=== PATIENT | female | born 1990 | race Caucasian/White ===

== ENCOUNTER 2017-03-18 07:10 | Inpatient (IN) ==
[2017-03-18] MEDS ORDERED: ceFAZolin 2,000 MG in PREMIX 1 EACH IV ONE (07:22)
[2017-03-18] MEDS ORDERED: CITRIC ACID/SODIUM CITRATE 30 ML UDCUP PO ONE (07:22)
[2017-03-18] MEDS ORDERED: FAMOTIDINE 20 MG/2 ML VIAL IV ONE (07:22)
[2017-03-18] MEDS ORDERED: OXYTOCIN 10 UNIT/ML VIAL IM ONE (07:26)
[2017-03-18] MEDS ORDERED: OXYTOCIN/LR 30 UNIT/1,000 ML BAG IV ONE (07:26)
[2017-03-18] MEDS ORDERED: LACTATED RINGERS 1,000 ML IV SCH (07:30)
[2017-03-18] MEDS: LACTATED RINGERS 1,000 ML IV SCH ×2 (07:31→14:37)
[2017-03-18 07:41] LABS: Basophils % 0.5 % (0.0-0.8); Eosinophils # 0.1 10*3/uL (0.0-0.87); Eosinophils % 1.2 % (0.00-10.9); Hemoglobin 9.8 GM/DL (12.0-16.0); Immature Granulocytes % 0.6 %; Immature Granulocytes Absolute 0.05 #; Lymphocytes # 2.2 10*3/uL (1.4-4.0); Lymphocytes % 27.6 % (21.3-54.2); Mean Corpuscular HGB Conc 32.7 GM/DL (32-36); Mean Corpuscular Hemoglobin 28 PG (27-34); Mean Corpuscular Volume 84.3 FL (87-102); Mean Platelet Volume 10.8 FL (9.6-12.0); Monocytes # 0.5 10*3/uL (0.11-0.8); Monocytes % 5.9 % (1.7-12.7); Neutrophils # 5.2 10*3/uL (1.4-7.4); Neutrophils % 64.2 % (38.7-73.9); Platelet Count 210 T/CUMM (130-400); Red Blood Count 3.56 MC/CUMM (3.8-5.5); Red Cell Distribution Width 14.6 % (9.3-17.3); White Blood Count 8.1 T/CUMM (4-12)
[2017-03-18 07:50] LABS: INR 0.9; PT Patient Result 9.4 SECS; Partial Thromboplastin Time 22.4 SECS (0-40)
[2017-03-18] MEDS ORDERED: OXYTOCIN/LR 20 UNIT/1,000 ML BAG IV ONE ×2 (07:57→10:16)
[2017-03-18] MEDS ORDERED: LABETALOL 100 MG TABLET ONE ×2 (08:06→18:11)
[2017-03-18] MEDS ORDERED: LABETALOL 100 MG TABLET PO ONE (08:07)
[2017-03-18 08:19] LABS: Alanine Aminotransferase 13 U/L (13-56); Albumin 2.8 G/DL (3.4-5.0); Alkaline Phosphatase 97 U/L (45-117); Aspartate Amino Transferase 8 U/L (0-37); Bilirubin,Total < 0.39 MG/DL (0.2-1.0); Blood Urea Nitrogen 8 MG/DL (7-18); Calcium 9.3 MG/DL (8.5-10.1); Glucose 85 MG/DL (74-106); Osmolality,Calculated 269.8 MOS/KG (273-304); Sodium 137 MMOL/L (136-145); Total Protein 7.3 G/DL (6.4-8.3)
[2017-03-18] MEDS ORDERED: SODIUM CHLORIDE 0.9% 250 ML IV PRN (09:32)
[2017-03-18] MEDS ORDERED: fentaNYL 100 MCG/2 ML VIAL ONE (10:14)
[2017-03-18] MEDS ORDERED: MORPHINE 10 MG/10 ML VIAL ONE (10:14)
[2017-03-18] MEDS ORDERED: MAGNESIUM HYDROXIDE SUSP 30 ML UDCUP PO PRN (10:16)
[2017-03-18] MEDS ORDERED: ACETAMINOPHEN 325 MG TABLET PO PRN (10:16)
[2017-03-18] MEDS ORDERED: ONDANSETRON 4 MG/2 ML VIAL IV PRN (10:16)
[2017-03-18] MEDS ORDERED: SIMETHICONE CHEW 80 MG TABLET PO PRN (10:16)
[2017-03-18] MEDS ORDERED: RHO(D) IMMUNE GLOBULIN 300 MCG SYRINGE IM ONE (10:16)
[2017-03-18] MEDS ORDERED: IBUPROFEN 800 MG TABLET PO PRN (10:16)
[2017-03-18 10:23] LABS: Cord Arterial Blood HCO3 20.1 MMOL/L
[2017-03-18 10:26] LABS: Cord Venous Blood HCO3 20.9 MMOL/L; Cord Venous Blood PCO2 39.2 MMHG; Cord Venous Blood PO2 30.3
[2017-03-18 12:43] LABS: Apearance,Urine CLEAR (Clear); Bacteria,Urine Occasional /HPF (Few); Bilirubin,Urine Negative (Negative); Blood, Urine Negative (Negative); Glucose,Urine (UA) Negative (Negative); Ketones,Urine Negative (Negative); Mucus,Urine Occasional /LPF (Occasional); Nitrite,Urine Negative (Negative); Protein,Urine Negative; RBC,Urine 1 /HPF (0-4); Squamous Epithelial Cell,Urine Occasional /HPF (0-10); Urine Color Yellow (Yellow); Urine Specific Gravity 1.015 (1.001-1.035); Urine Urobilinogen < 2.0 EU/DL (0.2-1.0); WBC,Urine <1 /HPF (0-6)
[2017-03-18] MEDS ORDERED: ACETAMINOPHEN 500 MG TABLET PO PRN (13:17)
[2017-03-18 17:07] LABS: Basophils % 0.3 % (0.0-0.8); Eosinophils # 0.1 10*3/uL (0.0-0.87); Eosinophils % 0.5 % (0.00-10.9); Hematocrit 29.3 VOL% (35.7-47.0); Hemoglobin 9.8 GM/DL (12.0-16.0); Immature Granulocytes % 0.6 %; Immature Granulocytes Absolute 0.08 #; Lymphocytes # 2.6 10*3/uL (1.4-4.0); Lymphocytes % 19.1 % (21.3-54.2); Mean Corpuscular HGB Conc 33.4 GM/DL (32-36); Mean Corpuscular Hemoglobin 28 PG (27-34); Mean Corpuscular Volume 84.2 FL (87-102); Mean Platelet Volume 11.6 FL (9.6-12.0); Monocytes # 0.8 10*3/uL (0.11-0.8); Monocytes % 5.9 % (1.7-12.7); Neutrophils % 73.6 % (38.7-73.9); Platelet Count 184 T/CUMM (130-400); Red Blood Count 3.48 MC/CUMM (3.8-5.5); Red Cell Distribution Width 14.6 % (9.3-17.3); White Blood Count 13.5 T/CUMM (4-12)
[2017-03-18] MEDS: DOCUSATE SODIUM 100 MG CAPSULE PO SCH (21:57)
[2017-03-18] MEDS: IBUPROFEN 800 MG TABLET PO PRN (23:43)
[2017-03-19] MEDS: LACTATED RINGERS 1,000 ML IV SCH (01:01)
[2017-03-19] MEDS: ACETAMINOPHEN/CODEINE 300-30 MG TABLET PO PRN ×3 (01:53→21:11)
[2017-03-19 05:59] LABS: Basophils % 0.1 % (0.0-0.8); Eosinophils # 0.1 10*3/uL (0.0-0.87); Eosinophils % 1.5 % (0.00-10.9); Hematocrit 24.5 VOL% (35.7-47.0); Hemoglobin 8.2 GM/DL (12.0-16.0); Immature Granulocytes % 0.5 %; Immature Granulocytes Absolute 0.04 #; Lymphocytes # 1.8 10*3/uL (1.4-4.0); Lymphocytes % 20.6 % (21.3-54.2); Mean Corpuscular HGB Conc 33.5 GM/DL (32-36); Mean Corpuscular Hemoglobin 28 PG (27-34); Mean Corpuscular Volume 83.3 FL (87-102); Mean Platelet Volume 10.9 FL (9.6-12.0); Monocytes # 0.6 10*3/uL (0.11-0.8); Monocytes % 6.8 % (1.7-12.7); Neutrophils % 70.5 % (38.7-73.9); Platelet Count 142 T/CUMM (130-400); Red Blood Count 2.94 MC/CUMM (3.8-5.5); Red Cell Distribution Width 14.9 % (9.3-17.3); White Blood Count 8.6 T/CUMM (4-12)
[2017-03-19] MEDS: IBUPROFEN 800 MG TABLET PO PRN ×2 (07:17→21:11)
[2017-03-19] MEDS ORDERED: SODIUM CHLORIDE 0.9% 250 ML IV PRN (08:54)
[2017-03-19] MEDS: FERROUS SULFATE 325 MG TABLET PO SCH ×2 (09:30→17:33)
[2017-03-19] MEDS: DOCUSATE SODIUM 100 MG CAPSULE PO SCH ×2 (09:31→21:11)
[2017-03-19] MEDS: MULTIVITAMIN (PRENATAL) TABLET PO SCH (09:31)
[2017-03-20] MEDS: FERROUS SULFATE 325 MG TABLET PO SCH ×2 (01:31→08:04)
[2017-03-20] MEDS: ACETAMINOPHEN/CODEINE 300-30 MG TABLET PO PRN ×2 (01:41→08:03)
[2017-03-20] MEDS: IBUPROFEN 800 MG TABLET PO PRN (06:13)
[2017-03-20 07:17] VITALS: BP 148/89
[2017-03-20] MEDS: DOCUSATE SODIUM 100 MG CAPSULE PO SCH (08:04)
[2017-03-20] MEDS: MULTIVITAMIN (PRENATAL) TABLET PO SCH (08:04)
== END 2017-03-20 11:25 | disposition home or self-care (01) | DRG 540 ==
LOC: N.LD 07:10 → N.OB 13:42
PROVIDERS: ADMIT Obstetrics & Gynecology; ATTEND Obstetrics & Gynecology
PROC: LDCSECT (ICD-10-PCS; 2017-03-18 08:25)

== ENCOUNTER 2021-07-09 12:15 | Inpatient (IN) ==
[2021-07-09] MEDS ORDERED: FAMOTIDINE 20 MG/2 ML VIAL IV ONE (12:58)
[2021-07-09] MEDS ORDERED: CITRIC ACID/SODIUM CITRATE 30 ML UDCUP PO ONE (12:58)
[2021-07-09] MEDS ORDERED: CLINDAMYCIN INJ 900 MG/50 ML PREMIX IV ONE (13:00)
[2021-07-09 13:22] LABS: Basophils % 0.3 % (0.0-0.8); Eosinophils # 0.1 10*3/uL (0.0-0.87); Eosinophils % 0.5 % (0.00-10.9); Hematocrit 30.9 VOL% (35.7-47.0); Hemoglobin 10.3 GM/DL (12.0-16.0); Immature Granulocytes % 0.7 %; Immature Granulocytes Absolute 0.07 #; Lymphocytes # 1.4 10*3/uL (1.4-4.0); Lymphocytes % 14.7 % (21.3-54.2); Mean Corpuscular HGB Conc 33.3 GM/DL (32-36); Mean Corpuscular Volume 89.8 FL (87-102); Mean Platelet Volume 11.2 FL (9.6-12.0); Monocytes % 4.1 % (1.7-12.7); Neutrophils % 79.7 % (38.7-73.9); Platelet Count 162 T/CUMM (130-400); Red Blood Count 3.44 MC/CUMM (3.8-5.5); Red Cell Distribution Width 14.3 % (9.3-17.3); White Blood Count 9.6 T/CUMM (4-12)
[2021-07-09 13:35] LABS: Bacteria,Urine Occasional /HPF (Few); Bilirubin,Urine Negative (Negative); Blood, Urine Negative (Negative); Glucose,Urine (UA) Negative (Negative); Ketones,Urine Negative (Negative); Mucus,Urine Few /LPF (Occasional); Nitrite,Urine Negative (Negative); Protein,Urine 30 MG/DL; RBC,Urine 4 /HPF (0-4); Squamous Epithelial Cell,Urine Occasional /HPF (0-10); Urine Appearance Slightly Hazy (Clear); Urine Color Amber (Yellow); Urine Specific Gravity 1.021 (1.001-1.035)
[2021-07-09 13:35] LABS: Bilirubin,Direct 0.11 MG/DL (0.0-0.20); INR 0.9; PT Patient Result 10.3 SECS (10.5-12.0); Partial Thromboplastin Time 22.3 SECS (23.8-32.1); Uric Acid 7.2 MG/DL (2.6-6.0)
[2021-07-09 13:40] LABS: Protein/Creatinine Ratio,Urine 0.2 RATIO
[2021-07-09 13:46] LABS: Alanine Aminotransferase 12 U/L (13-56); Albumin 2.5 G/DL (3.4-5.0); Alkaline Phosphatase 116 U/L (45-117); Aspartate Amino Transferase 9 U/L (0-37); Bilirubin,Total < 0.39 MG/DL (0.20-1.00); Blood Urea Nitrogen 8 MG/DL (7-18); Calcium 8.6 MG/DL (8.5-10.1); Carbon Dioxide 23 MMOL/L (21-32); Estimated Glom Filtration Rate 154 ML/MIN; Glucose 130 MG/DL (74-106); Osmolality,Calculated 276.5 MOS/KG (273-304); Potassium 4.1 MMOL/L (3.5-5.1); Sodium 139 MMOL/L (136-145); Total Protein 6.9 G/DL (6.4-8.2)
[2021-07-09] MEDS ORDERED: CALCIUM CARBONATE CHEW 500 MG TABLET PO ONE (19:49)
[2021-07-09] MEDS ORDERED: LABETALOL 100 MG TABLET PO SCH (21:00)
[2021-07-09] MEDS ORDERED: ACETAMINOPHEN/CODEINE 300-30 MG TABLET PO PRN (23:32)
[2021-07-10] MEDS: LACTATED RINGERS 1,000 ML IV SCH ×3 (04:59→05:00)
[2021-07-10] MEDS ORDERED: OXYTOCIN 10 UNIT/ML VIAL IM ONE (07:10)
[2021-07-10] MEDS ORDERED: OXYTOCIN/LR 30 UNIT/1,000 ML BAG IV ONE (07:10)
[2021-07-10] MEDS ORDERED: FAMOTIDINE 20 MG/2 ML VIAL IV ONE (08:00)
[2021-07-10] MEDS ORDERED: CLINDAMYCIN INJ 900 MG/50 ML PREMIX IV ONE (08:00)
[2021-07-10] MEDS ORDERED: CITRIC ACID/SODIUM CITRATE 30 ML UDCUP PO ONE (08:00)
[2021-07-10] MEDS ORDERED: ONDANSETRON 4 MG/2 ML VIAL ONE (08:12)
[2021-07-10] MEDS ORDERED: TRANEXAMIC ACID 1,000 MG/10 ML VIAL ONE (08:17)
[2021-07-10] MEDS ORDERED: SODIUM CHLORIDE 0.9% 0 ML IV ONE (08:17)
[2021-07-10] MEDS ORDERED: miSOPROStoL 200 MCG TABLET ONE (08:17)
[2021-07-10] MEDS ORDERED: OXYTOCIN/LR 20 UNIT/1,000 ML BAG IV ONE ×2 (08:17→13:19)
[2021-07-10] MEDS ORDERED: METHYLERGONOVINE 0.2 MG/1 ML AMP ONE (08:18)
[2021-07-10] MEDS ORDERED: CARBOPROST TROMETHAMINE 250 MCG/ML AMP IM ONE (08:18)
[2021-07-10 09:09] LABS: Cord Arterial Blood HCO3 24.3 MMOL/L
[2021-07-10 09:12] LABS: Cord Venous Blood HCO3 22.3 MMOL/L; Cord Venous Blood PCO2 49.1 MMHG; Cord Venous Blood PO2 < 19.0 MMHG
[2021-07-10] MEDS ORDERED: PHENYLEPHRINE 1 MG/10 ML SYRINGE IV ONE (09:14)
[2021-07-10] MEDS ORDERED: ACETAMINOPHEN INJ 1,000 MG/100 ML VIAL IV ONE (09:14)
[2021-07-10] MEDS ORDERED: KETOROLAC 30 MG/1 ML VIAL ONE (09:14)
[2021-07-10 09:15] LABS: Cord Arterial Blood HCO3 24.3 MMOL/L
[2021-07-10 09:21] LABS: Cord Venous Blood HCO3 22.6 MMOL/L; Cord Venous Blood PCO2 51.6 MMHG; Cord Venous Blood PO2 < 19.0 MMHG
[2021-07-10] MEDS ORDERED: LACTATED RINGERS 1,000 ML IV SCH (13:19)
[2021-07-10] MEDS ORDERED: RHO(D) IMMUNE GLOBULIN 300 MCG SYRINGE IM ONE (13:19)
[2021-07-10] MEDS ORDERED: MAGNESIUM HYDROXIDE SUSP 30 ML UDCUP PO PRN (13:19)
[2021-07-10] MEDS ORDERED: ONDANSETRON 4 MG/2 ML VIAL IV PRN (13:19)
[2021-07-10] MEDS ORDERED: ACETAMINOPHEN 325 MG TABLET PO PRN (13:19)
[2021-07-10] MEDS ORDERED: SIMETHICONE CHEW 80 MG TABLET PO PRN (13:19)
[2021-07-10] MEDS ORDERED: KETOROLAC 30 MG/1 ML VIAL IV SCH (15:00)
[2021-07-10] MEDS ORDERED: ACETAMINOPHEN 500 MG TABLET PO SCH (15:00)
[2021-07-10] MEDS: KETOROLAC 30 MG/1 ML VIAL IV SCH ×2 (15:48→21:50)
[2021-07-10] MEDS: ACETAMINOPHEN 500 MG TABLET PO SCH ×2 (15:49→21:46)
[2021-07-10] MEDS: CLINDAMYCIN INJ 900 MG/50 ML PREMIX IV SCH ×2 (15:49→23:24)
[2021-07-10 20:01] LABS: Basophils % 0.2 % (0.0-0.8); Eosinophils # 0.1 10*3/uL (0.0-0.87); Eosinophils % 0.5 % (0.00-10.9); Hematocrit 28.2 VOL% (35.7-47.0); Hemoglobin 9.2 GM/DL (12.0-16.0); Immature Granulocytes % 0.6 %; Immature Granulocytes Absolute 0.07 #; Lymphocytes # 1.8 10*3/uL (1.4-4.0); Lymphocytes % 14.5 % (21.3-54.2); Mean Corpuscular HGB Conc 32.6 GM/DL (32-36); Mean Corpuscular Volume 90.7 FL (87-102); Mean Platelet Volume 11.7 FL (9.6-12.0); Neutrophils % 78.2 % (38.7-73.9); Platelet Count 134 T/CUMM (130-400); Red Blood Count 3.11 MC/CUMM (3.8-5.5); Red Cell Distribution Width 14.3 % (9.3-17.3); White Blood Count 12.3 T/CUMM (4-12)
[2021-07-10] MEDS: DOCUSATE SODIUM 100 MG CAPSULE PO SCH (21:45)
[2021-07-11] MEDS: KETOROLAC 30 MG/1 ML VIAL IV SCH (04:03)
[2021-07-11] MEDS: ACETAMINOPHEN 500 MG TABLET PO SCH (04:08)
[2021-07-11 06:41] LABS: Basophils % 0.3 % (0.0-0.8); Eosinophils # 0.2 10*3/uL (0.0-0.87); Hemoglobin 8.9 GM/DL (12.0-16.0); Immature Granulocytes % 0.6 %; Immature Granulocytes Absolute 0.07 #; Lymphocytes # 2.1 10*3/uL (1.4-4.0); Lymphocytes % 18.1 % (21.3-54.2); Mean Corpuscular Volume 90.9 FL (87-102); Mean Platelet Volume 12.2 FL (9.6-12.0); Monocytes % 5.7 % (1.7-12.7); Neutrophils % 73.3 % (38.7-73.9); Platelet Count 140 T/CUMM (130-400); Red Blood Count 2.97 MC/CUMM (3.8-5.5); Red Cell Distribution Width 14.6 % (9.3-17.3); White Blood Count 11.5 T/CUMM (4-12)
[2021-07-11] MEDS: DOCUSATE SODIUM 100 MG CAPSULE PO SCH ×3 (09:42→21:59)
[2021-07-11] MEDS: MULTIVITAMIN (PRENATAL) TABLET PO SCH (09:42)
[2021-07-11] MEDS: IBUPROFEN 800 MG TABLET PO PRN ×2 (13:12→21:42)
[2021-07-11] MEDS: METOCLOPRAMIDE 10 MG TABLET PO SCH (15:56)
[2021-07-11] MEDS: FERROUS SULFATE 325 MG TABLET PO SCH (21:42)
[2021-07-12] MEDS: METOCLOPRAMIDE 10 MG TABLET PO SCH ×2 (00:32→12:33)
[2021-07-12] MEDS: FERROUS SULFATE 325 MG TABLET PO SCH (09:08)
[2021-07-12] MEDS: DOCUSATE SODIUM 100 MG CAPSULE PO SCH (09:08)
[2021-07-12] MEDS: MULTIVITAMIN (PRENATAL) TABLET PO SCH (09:08)
[2021-07-12] MEDS: IBUPROFEN 800 MG TABLET PO PRN (12:34)
[2021-07-12 19:32] VITALS: BP 143/81
== END 2021-07-12 14:40 | disposition home or self-care (01) | DRG 539 ==
LOC: N.LDOUT 12:15 → N.LD 12:17 → N.OB 07-10 12:52
PROVIDERS: ADMIT Obstetrics & Gynecology; ATTEND Obstetrics & Gynecology